=== PATIENT | male | born 1970 | race Asian ===

== ENCOUNTER 2017-09-10 12:22 | Emergency (ER) | payer OTHER ==
--- NOTE | 2017-09-10 13:17 | XRAY Preliminary Report ---
Exam: XR SHOULDER 3 VIEW RT IMPRESSION: Mild widening of the acromioclavicular joint. Otherwise negative right shoulder. [facility] SITE ID: [id number]
--- NOTE | 2017-09-10 13:17 | XRAY Report ---
EXAM: RIGHT SHOULDER RADIOGRAPHY EXAM DATE: 09/10/2017 01:05 PM. CLINICAL HISTORY: Shoulder pain COMPARISON: None. TECHNIQUE: 4 views. FINDINGS: Bones: Normal. No fracture or bone lesion. Joints: There is mild widening of the acromioclavicular joint. Glenohumeral joint appears in satisfac tory alignment. Soft tissues: The visualized hemithorax is unremarkable. No soft tissue swelling. IMPRESSION: Mild widening of the acromioclavicular joint. Otherwise negative right shoulder. [facility] Referring Provider Line: [phone] SITE ID: [id number]
--- NOTE | 2017-09-10 13:49 | ED Physician Documentation ---
PD HPI UPPER EXT INJURY - Stated complaint Stated Complaint: RT SHOULDER/NECK PAIN - Chief complaint Chief Complaint: Ext Problem - History obtained from History obtained from: Patient - History of Present Illness Location: Right, Shoulder Type of injury: Other (slept wrong) Where injury occurred: Home Timing - onset: Yesterday Timing - duration: Days (2) Timing - details: Abrupt onset, Still present Improved by: Rest Worsened by: Moving, Palpating Associated symptoms: No: Weakness, Numbness, Tingling Contributing factors: No: Anticoagulated Similar symptoms before: Has not had sx before Recently seen: Not recently seen - Additonal information Additional information: 46-year-old male awoke yesterday morning with some pain in his right neck and right shoulder over his shoulder blade. He had some pain with movement of his neck and this seemed to loosen up somewhat during the day and when he awoke this morning the pain was worse. He has had some pain and stiffness and does not recall any type of an injury denies any excessive repetitive use. 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 He denies any recent heavy lifting. . Review of Systems Constitutional: denies: Fever Eyes: denies: Decreased vision Ears: denies: Ear pain, Drainage/discharge Nose: denies: Congestion Throat: denies: Sore throat Cardiac: denies: Chest pain / pressure, Palpitations Respiratory: denies: Dyspnea, Cough GI: denies: Abdominal Pain, Nausea, Vomiting : denies: Dysuria, Frequency Skin: denies: Rash Musculoskeletal: reports: Neck pain, Back pain Neurologic: denies: Generalized weakness, Focal weakness PD PAST MEDICAL HISTORY - Past Medical History Past Medical History: Yes Cardiovascular: High cholesterol - Past Surgical History Past Surgical History: No - Present Medications Home Medications: Ambulatory Orders Medication Instructions Recorded Confirmed Cyclobenzaprine [Flexeril] 10 mg PO TID PRN #20 tablet 09/10/17 HYDROcod/ACETAM 5/325 [[place] 5/325] 1 - 2 ea PO Q6H PRN #15 tablet 09/10/17 - Allergies Allergies/Adverse Reactions: Allergies Allergy/AdvReac Type Severity Reaction Status Date / Time No Known Drug Allergies Allergy Verified 09/10/17 12:40 - Social History Does the pt smoke?: Yes Smoking Status: Current every day smoker Does the pt drink ETOH?: Yes Does the pt have substance abuse?: No - Immunizations Immunizations are current?: Yes PD ED PE NORMAL - Vitals Vital signs reviewed: Yes (hypertensive mild ) - General General: Alert and oriented X 3, No acute distress, Well developed/nourished - HEENT HEENT: Atraumatic, PERRL, EOMI - Neck Neck: Supple, no meningeal sign, No bony TTP, Other (There is mild tenderness to the right cervical paraspinous muscles and there is good ROM of the neck ) - Cardiac Cardiac: RRR, No murmur - Respiratory Respiratory: No respiratory distress, Clear bilaterally - Abdomen Abdomen: Soft, Non tender - Back Back: No CVA TTP, No spinal TTP, Other (There is tenderness to the right rhomboid muscle area with firm muscles. ) - Derm Derm: Normal color, Warm and dry, No rash - Extremities Extremities: No deformity, No edema, Other (There is good ROM of the shoulder and no specific tenderness) - Neuro Neuro: No motor deficit, No sensory deficit Eye Opening: Spontaneous Motor: Obeys Commands Verbal: Oriented GCS Score: 15 - Psych Psych: Normal mood, Normal affect Results - Vitals Vitals: Vital Signs - 24 hr 09/10/17 09/10/17 12:35 14:31 Temperature 36.9 C Heart Rate 93 84 Respiratory 16 18 Rate Blood Pressure 137/80 H 134/91 H O2 Saturation 100 100 Oxygen O2 Source Room air - Rads (name of study) right shoulder Radiology: Prelim report reviewed (Impression: Mild widening of the acromioclavicular joint. 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 He is treated in the emergency department with dexamethasone and we will provide some pain medication and muscle relaxant. Departure - Departure Disposition: 01 Home, Self Care Clinical Impression: Rhomboid muscle pain, Torticollis, acute Condition: Stable Instructions: ED Spasm Neck No Injury Follow-Up: Bhanu Ocasio MD [Primary Care Provider] - Prescriptions: Cyclobenzaprine [Flexeril] 10 mg PO TID PRN #20 tablet PRN Reason: Spasms HYDROcod/ACETAM 5/325 [[place] 5/325] 1 - 2 ea PO Q6H PRN #15 tablet PRN Reason: Pain Discharge Date/Time: 09/10/17 14:31
[2017-09-10] MEDS ORDERED: DEXAMETHASONE 10 MG/ML VIAL PO STA (14:08)
[2017-09-10 14:33] VITALS: BP 134/91
[2017-09-10] MEDS ORDERED: CHERRY SYRUP 10 ML UDC PO ONE (14:35)
== END 2017-09-10 14:31 | disposition home or self-care (01) ==
LOC: ED 12:22
DX: M43.6 Torticollis (principal); E78.00 Pure hypercholesterolemia, unspecified; F17.200 Nicotine dependence, unspecified, uncomplicated
CPT/HCPCS: 73030; 99283; A9270